=== PATIENT | male | born 1970 | race Caucasian/White ===

== ENCOUNTER 2017-10-05 02:12 | Day surgery (SDC) | payer OTHER, BC ==
[~2017-10-05] VITALS: Ht 190.5 cm; Wt 127.0 kg
[~2017-10-05 02:12] MED LIST: META-1 PO; NAPR-1043 PO
[2017-10-05] MEDS ORDERED: LIDOCAINE/SOD BICARB 8.4% SYR ID ONE (06:15)
[2017-10-05] MEDS ORDERED: NORMOSOL R SOLN(*) 1000 ML BAG 1,000 ML IV PRN (06:15)
[2017-10-05] MEDS ORDERED: FAMOTIDINE 20 MG TAB PO ONE (06:15)
[2017-10-05] MEDS ORDERED: ceFAZolin(*) 2GM/D5W 50ML 50 ML IVPB ONE (06:15)
[2017-10-05] MEDS ORDERED: MIDAZOLAM 2 MG/2 ML VIAL IVP PRN (06:15)
[2017-10-05] MEDS ORDERED: BUPIV/EPI 0.25% 1:200,000 50ML INFIL ONE (06:34)
[2017-10-05 06:35] VITALS: BP 133/82
[2017-10-05] MEDS ORDERED: ROPIVACAINE 0.2% 20 ML VIAL ONE (07:00)
[2017-10-05] MEDS ORDERED: ROPIVACAINE 0.5% 20 ML VIAL ONE (07:00)
[2017-10-05] MEDS ORDERED: DEXAMETHASONE SOD PHOS 10MG/ML ONE (07:01)
[2017-10-05] MEDS ORDERED: PROPOFOL EMUL(*) 10MG/ML 20 ML 20 ML ONE ×2 (07:03→07:04)
[2017-10-05] MEDS ORDERED: LIDOCAINE MPF 1% 5 ML VIAL ONE (07:03)
[2017-10-05] MEDS ORDERED: fentaNYL CITR 100 MCG/2 ML AMP ONE ×2 (07:05)
[2017-10-05] MEDS ORDERED: LIDOCAINE 2% IV 100 MG/5ML SYR ONE (07:06)
[2017-10-05] MEDS ORDERED: ONDANSETRON 4 MG/2 ML VIAL ONE (07:31)
[2017-10-05] MEDS ORDERED: LABETALOL HCL 100 MG/20ML VIAL ONE (07:36)
[2017-10-05] MEDS ORDERED: LACTATED RINGER 3000 ML BAG IR ONE ×2 (08:29→08:34)
[2017-10-05] MEDS ORDERED: OXYC-865 PO (09:19)
[2017-10-05] MEDS ORDERED: CEPH500T7 PO (09:19)
[2017-10-05] MEDS ORDERED: DEXAMETHASONE SOD 4 MG/ML VIAL ONE (09:32)
[2017-10-05 10:00] VITALS: BP 134/90
[2017-10-05] MEDS ORDERED: ALBUTEROL/IPRATROPIUM 3 ML NEB ONE (10:17)
[2017-10-05 10:37] VITALS: BP 118/79
[2017-10-05 10:38] VITALS: BP 124/83
--- NOTE | 2017-10-05 16:06 | OPERATIVE REPORT 1 ---
EVENT DATE: October 05, 2017 SURGEON: Thanh Looney MD ANESTHESIOLOGIST: Charlie Ramos MD ANESTHESIA: LMA with interscalene block. JEWEL CUPPING MACHINE OPERATOR: MICHAEL Simpson PREOPERATIVE DIAGNOSES 1. Left shoulder partial-thickness rotator cuff tear. 2. Impingement. 3. Acromioclavicular joint degenerative joint disease. 4. Glenohumeral joint degenerative joint disease. POSTOPERATIVE DIAGNOSES 1. Left shoulder partial-thickness rotator cuff tear. 2. Impingement. 3. Acromioclavicular joint degenerative joint disease. 4. Severe glenohumeral joint degenerative joint disease. 5. Large loose body. PROCEDURES PERFORMED 1. Left shoulder arthroscopy with extensive debridement of the glenohumeral joint. 2. Microfracture of glenoid. 3. Subacromial decompression acromioplasty. 4. Distal clavicle resection. 5. Large loose body 1.5 cm x 1 cm removal. COMPLICATIONS None. DRAINS None. SPECIMENS None. IMPLANTS None. HISTORY Mr. Hammer is a 47-year-old male with a longstanding history of left shoulder pain. He had progressively increased pain and diminished range of motion despite extensive physical therapy and injections. He failed conservative measures. Following discussion of the risks, benefits, alternatives, and possible complications of surgical and nonsurgical intervention with him, he wished to proceed with surgical intervention. DESCRIPTION OF PROCEDURE The patient was brought to the operating room and placed on the operating table in the supine position. A proper timeout was performed, identifying patient, limb of surgery, and surgical procedure. The patient was given preoperative IV antibiotics. He underwent interscalene block, followed by LMA anesthesia. The patient was then placed in the right lateral decubitus position. A well-padded axillary roll was placed. The lower extremities were well padded. The left upper extremity was then prepped and draped in sterile orthopedic fashion. The shoulder was insufflated with 40 mL sterile saline. There was no deltoid bursal insufflation. The posterior portal was established. The camera was placed intra-articularly. The anterior portal was established, and a 5 mm cannula was placed in the rotator cuff interval. A probe was placed intra- articularly. There was extensive degenerative tearing of the hogue labral tissues anterior, posterior, superior, and inferior. The long head of the biceps tendon was actually intact and in good condition. The intra-articular portion of the long head of the biceps was in good condition. The axillary demonstrated some reactive synovitis, but no major loose body. The subscapularis was intact. The superior, middle, and inferior glenohumeral ligaments were intact. The humeral head and glenoid demonstrated significant grade III change on the humeral head, posterior 40% of the head with transition. The posterior one-third of the glenoid, unfortunately, demonstrated grade IV change. There was a large loose body sitting in the anterior gutter of the shoulder. This was removed with a grasper. This measured about 1 cm x 1.5 cm. The undersurface of the rotator cuff was visualized and demonstrated some mild fraying, but this was fairly minimal. Once complete, a 4 mm shaver was placed intra-articularly. The anterior labrum and glenoid were debrided until stable tissue was obtained. The humeral head was debrided with chondroplasty until stable tissue was obtained. The undersurface of the rotator cuff was debrided until stable tissue was obtained. The camera was put into place anteriorly. Identical findings were established. The subscapularis recess demonstrated no other obvious loose bodies. The posterior cuff was in good condition. A 4 mm shaver was placed posteriorly. The posterior and inferior labrum were debrided with a shaver until stable tissue was obtained. A chondroplasty was then performed on the humeral head and glenoid until stable articular cartilage transitions were obtained. The area of grade IV change was debrided with abrasion chondroplasty , and then a 45-degree microfracture awl was utilized to perform a microfracture , debriding subchondral bone. We did have a nice bleeding surface. Once complete, all instrumentation was removed. The camera was placed in the subacromial space. Accessory anterior 5.5 mm cannula and 5 mm lateral cannula were established. The subacromial bursa was debrided with a shaver and surfaced for cauterization. The bursal side of the rotator cuff was pristine with no major tearing. There was fraying of the CA ligament on the undersurface of the acromion. We freed up the CA ligament off the undersurface of the acromion, and then a subacromial decompression with acromioplasty was performed with the auger bur in 90-90 technique in an upward fashion. Once complete with the camera in the lateral portal, the anterior portal was redirected to the AC joint. There was extensive degenerative change about the distal clavicle with a large osteophyte inferiorly. The medial facet of the acromion was then taken down, and distal clavicle resection was performed in arthroscopic fashion. We had 360-degree visualization and resected 8 mm of distal clavicle. Once this was completed, all instrumentation was removed. The shoulder was drained. The cul-de-sac was closed with 4-0 Monocryl. A standard postoperative dressing, Iceman, and UltraSling were applied. Mr. Hammer tolerated the procedure well. He was extubated and transferred to the PACU in stable condition. PLAN He will be placed on my shoulder arthroscopy protocol and will follow up with me in 10 to 14 days. PATRICIA
== END 2017-10-05 10:00 | disposition home or self-care (01) ==
LOC: OR 02:12
PROVIDERS: ATTEND Orthopaedic Surgery
DX: M75.112 Incomplete rotator cuff tear or rupture of left shoulder, not specified as traumatic (principal); M75.42 Impingement syndrome of left shoulder; M19.012 Primary osteoarthritis, left shoulder
CPT/HCPCS: 29824; 29826; 29827; 76942; 94640; 94667; A4565; J1100; J2001; J2250; J2405; J2704; J2795; J3010; J3490; J7030; J7620; J0690